=== PATIENT | female | born 1980 | race Two or more races ===

== ENCOUNTER 2022-03-27 23:43 | Emergency (ER) | payer BC ==
[2022-03-27 23:50] VITALS: RESP 16; BMI 40.2
[2022-03-28 00:01] VITALS: BP 135/92; PULSE 106; TEMP 98.3
[2022-03-28] MEDS ORDERED: levoFLOXacin 750 MG TABLET PO STA (00:19)
[2022-03-28] MEDS ORDERED: levoFLOXacin 750 MG TABLET PO SCH (10:00)
== END 2022-03-28 00:22 | disposition home or self-care (01) ==
LOC: FER 23:43
DX: J18.9 Pneumonia, unspecified organism (principal)
CPT/HCPCS: 99283-25

== ENCOUNTER 2023-05-30 05:44 | Emergency (ER) | payer BC ==
[2023-05-30] MEDS ORDERED: LIDOCAINE 2.5%/PRILOCAINE 2.5% (5 Gram/TUBE) TP ONE (05:51)
[2023-05-30 06:01] VITALS: BP 120/79; PULSE 95; RESP 17; TEMP 98.3; BMI 38.9
[2023-05-30] MEDS: LIDOCAINE 2.5%/PRILOCAINE 2.5% 30 GRAM TUBE TP ONE (06:20)
== END 2023-05-30 06:27 | disposition home or self-care (01) ==
LOC: FER 05:44
PROC: 0HQFXZZ Repair Right Hand Skin, External Approach (ICD-10-PCS; principal; 2023-05-30)
DX: S61.210A Laceration without foreign body of right index finger without damage to nail, initial encounter (principal); W26.8XXA Contact with other sharp object(s), not elsewhere classified, initial encounter
CPT/HCPCS: 99282-25